=== PATIENT | male | born 1945 | race Caucasian/White ===

== ENCOUNTER → 2016-12-17 | Outpatient (CLI) | payer OTHER ==
[~2016-12-17] MED LIST: ALL300 PO; ASPI81TA28 PO; OMEG10007 PO; OMEP20CA9 PO; ONDA4TAB7 SL; PERFLUTREN LIPID MICROSPHERE (DEFINITY) IV ONE; SIMV-150 PO
--- NOTE | 2016-12-17 11:16 | DIAGNOSTIC IMAGING REPORT ---
BILATERAL CAROTID DOPPLER STUDY HISTORY: LIGHTHEADEDNESS COMPARISON: None. TECHNIQUE: Real-time, grayscale, and color Doppler sonography of the carotid arteries was performed. Imaging reviewed in the transverse and longitudinal planes. All measurements were calculated based on NASCET criteria. FINDINGS: Antegrade flow is seen in the bilateral vertebral arteries. The brachial pressures are hemodynamically similar. The peak systolic velocity within the right ICA is 49 cm/s. The right systolic ratio is 0.5. The peak systolic velocity within the left ICA is 50 cm/s. The left systolic ratio is 0.5. IMPRESSION: No hemodynamically significant stenosis seen within the carotid arteries. Electronically signed by: Adriel Simmons M.D. 12/17/2016 11:15 AM Dictated Date/Time: 12/17/2016 11:14 AM
--- NOTE | 2016-12-17 12:35 | EXERCISE STRESS ECHO ---
*NOTICE TO RECEIVING CONSTITUTION PARTY AGENCY This information is strictly Confidential and protected under [place] law. [place] law prohibits you from making any further disclosure of this information unless further disclosure is expressly permitted by the written consent of the person to whom it pertains or is authorized by law. A general authorization for the release of medical or other information is not sufficient for this purpose. Hospital accepts no responsibility if the information is made available to any other person, INCLUDING THE PATIENT. Interpretation Summary * Name: DIMAS NAZARIO Study Date: 12/17/2016 09:10 AM BP: 142/93 mmHg * Patient Location: [facility] HR: 71 * : 1945 (M/d/yyyy) Gender: Male Height: 73 in * Age: 71 yrs Ethnicity: [place] Weight: 240 lb * Ordering Physician: Esthela Rae * Referring Physician: Esthela Rae D.O. * Performed By: Margo Quigley RDCS * * Reason For Study: CHEST PAIN * BSA: 2.3 m2 * -- Conclusions -- * There is mild mitral regurgitation. * Grade I diastolic dysfunction, (abnormal relaxation pattern). * Left ventricular systolic function is normal. * Maximal exercise echocardiogram without symptoms and no evidence of ischemia on echocardiographic images. Possible false positve EKG response. Procedure Details * ECHOEX, CPT #64466 * A contrast injection of Definity was performed to improve assessment of LV function. * Contrast was injected into an intravenous site in the right arm. * One vial of Definity ultrasound contrast was diluted in normal saline to a total volume of 10 ml. A total of '4' ml of solution was administered during imaging. * Lot # [id number] of Definity utilized for procedure. * Expiration date NOV 17. Left Ventricular Findings with Stress * Maximal exercise echocardiogram without symptoms and no evidence of ischemia on echocardiographic images. Possible false positve EKG response. Left Ventricle * The left ventricle is normal in size. * There is normal left ventricular wall thickness. * Ejection Fraction = 65-70%. * Grade I diastolic dysfunction, (abnormal relaxation pattern). * Left ventricular systolic function is normal. Right Ventricle * The right ventricle is normal in size and function. Atria * The left atrial size is normal. * Right atrial size is normal. Mitral Valve * The mitral valve is grossly normal. * There is mild mitral regurgitation. Tricuspid Valve * The tricuspid valve anatomy is normal. * Significant tricuspid regurgitation is absent. Aortic Valve * The aortic valve is normal in structure and function. * No hemodynamically significant valvular aortic stenosis. * There is no significant aortic regurgitation. Great Vessels * The aortic root is normal size. Pericardium * There is no pericardial effusion. Stress Parameters * Normal baseline electrocardiogram. * The stress portion of this study was personally supervised by the undersigned interpreting physician. * Rest heart rate was '71' BPM. * Rest blood pressure was '142/93' * Maximum heart rate achieved was 133 bpm. * Maximum heart rate was 89 % of maximum age-predicted heart rate. * Maximum blood pressure was '204/77' * Total exercise time was '6:31' * Maximum exercise MET level achieved was '7.70' METS * Maximum treadmill speed was '3.40' miles per hour. * Maximum treadmill elevation was '14.00'% grade. * Exercise was terminated due to 'ACHIEVING TARGET HR' Left Ventricular Findings with Stress * Normal baseline EKG with development of 1mm upsloping depressions at peak exertion whcih resolved quickly in recovery Baseline echocardiogram was normal. Normal augmentation with exertion and no inducible wall motion abnormalities. Normal HR and BP response to exercise. Pt had dyspnea but no chest pain. Cardozo treadmill score: 2 (moderate risk) MMode 2D Measurements and Calculations IVSd 1.3 cm IVSs 1.8 cm LVIDd 4.5 cm LVIDs 2.8 cm LVPWd 1.1 cm LVPWs 1.7 cm IVS/LVPW 1.1 FS 38.0 % EDV(Teich) 93.9 ml ESV(Teich) 29.8 ml EF(Teich) 68.3 % EDV(cubed) 93.0 ml ESV(cubed) 22.2 ml EF(cubed) 76.2 % % IVS thick 44.4 % % LVPW thick 55.9 % LV mass(C)d 196.8 grams LV mass(C)dI 84.6 grams/m\S\2 LV mass(C)s 196.2 grams LV mass(C)sI 84.4 grams/m\S\2 SV(Teich) 64.2 ml SI(Teich) 27.6 ml/m\S\2 SV(cubed) 70.8 ml SI(cubed) 30.5 ml/m\S\2 Ao root diam 3.8 cm Ao root area 11.6 cm\S\2 LA dimension 3.5 cm LA/Ao 0.91 LVAd ap4 28.7 cm\S\2 LVLd ap4 8.8 cm EDV(MOD-sp4) 76.4 ml EDV(sp4-el) 79.7 ml LVAs ap4 14.5 cm\S\2 LVLs ap4 7.4 cm ESV(MOD-sp4) 23.3 ml ESV(sp4-el) 24.1 ml EF(MOD-sp4) 69.5 % EF(sp4-el) 69.7 % LVAd ap2 28.8 cm\S\2 LVLd ap2 8.5 cm EDV(MOD-sp2) 81.7 ml EDV(sp2-el) 82.9 ml LVAs ap2 15.1 cm\S\2 LVLs ap2 7.6 cm ESV(MOD-sp2) 26.5 ml ESV(sp2-el) 25.3 ml EF(MOD-sp2) 67.6 % EF(sp2-el) 69.5 % LVLd %diff -3.56 % EDV(MOD-bp) 78.5 ml LVLs %diff 2.7 % ESV(MOD-bp) 25.0 ml EF(MOD-bp) 68.2 % SV(MOD-sp4) 53.0 ml SI(MOD-sp4) 22.8 ml/m\S\2 SV(MOD-sp2) 55.2 ml SI(MOD-sp2) 23.8 ml/m\S\2 SV(MOD-bp) 53.6 ml SI(MOD-bp) 23.0 ml/m\S\2 SV(sp4-el) 55.6 ml SI(sp4-el) 23.9 ml/m\S\2 SV(sp2-el) 57.6 ml SI(sp2-el) 24.8 ml/m\S\2 Doppler Measurements and Calculations MV E max martine 55.2 cm/sec MV A max martine 64.1 cm/sec MV E/A 0.86 MV dec time 0.43 sec Ao V2 max 127.7 cm/sec Ao max PG 6.5 mmHg Ao max PG (full) 0.75 mmHg LV V1 max PG 5.8 mmHg LV V1 max 120.1 cm/sec
--- NOTE | 2016-12-22 07:08 | CODING QUERY MEDICAL NECESSITY ---
SUPPORTING DIAGNOSIS NEEDED Dr. Rae, A supporting diagnosis is required for the test/procedure performed on this patient in order for us to be reimbursed by the patient's insurance. Please provide a supporting diagnosis for the following test/procedure listed below next to the test name along with your signature. *If there is no additional diagnosis for this patient that would support the following test/procedure please document that below next to the test/procedure. Test(s)/Procedure(s) that require a supporting diagnosis: * ([id number]) PERFLUTREN LIPID MICRO, 2ML DIAGNOSIS: * ([id number]) (CAROTID DOP) DUPLEX NECK ARTER DIAGNOSIS: DATE OF SERVICE: 12/17/16 Provider Signature: Date: Thank you Tee Patiño [facility] Information Management Once completed, please kindly fax back to [phone] For questions please call [phone]
== END | disposition home or self-care (01) ==
LOC: C.CPL 08:44
PROVIDERS: ATTEND Family Medicine
DX: R42 Dizziness and giddiness (principal); E78.5 Hyperlipidemia, unspecified; R07.9 Chest pain, unspecified